=== PATIENT | male | born 1955 | race Hispanic/Latino ===

== ENCOUNTER 2018-01-16 20:48 | Emergency (ER) | payer SELFPAY ==
[2018-01-16] MEDS ORDERED: LIDOCAINE 1% 20 ML MDV ONE (21:15)
[2018-01-16] MEDS ORDERED: TETANUS & DIPHTHERIA TOX,ADULT 0.5 ML VIAL ONE (21:32)
[2018-01-16] MEDS ORDERED: DERMABOND SKIN ADHESIVE TOP ONE (21:38)
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
--- NOTE | 2018-01-17 08:07 | RAD REPORT ---
EXAM DESCRIPTION: CT - Head Brain Wo Cont - 01/17/2018 6:46 am CLINICAL HISTORY: Trauma, head injury COMPARISON: None. TECHNIQUE: All CT scans are performed using dose optimization technique as appropriate and may inclu de automated exposure control or mA/KV adjustment according to patient size. FINDINGS: No intracranial hemorrhage, hydrocephalus or extra-axial fluid collection.Moderate brain a trophy.No areas of brain edema or evidence of midline shift. Moderate left frontal scalp hematoma. The paranasal sinuses and mastoids are clear. The calvarium is intact. IMPRESSION: No acute intracranial abnormality.
== END 2018-01-16 23:18 | disposition home or self-care (01) ==
LOC: ER 20:48
PROC: 0JQ10ZZ Repair Face Subcutaneous Tissue and Fascia, Open Approach (ICD-10-PCS; principal; 2018-01-16)
DX: S01.81XA Laceration without foreign body of other part of head, initial encounter (principal); S01.01XA Laceration without foreign body of scalp, initial encounter; S01.122A Laceration with foreign body of left eyelid and periocular area, initial encounter; Y04.0XXA Assault by unarmed brawl or fight, initial encounter; Y92.009 Unspecified place in unspecified non-institutional (private) residence as the place of occurrence of the external cause; Z23 Encounter for immunization
CPT/HCPCS: 70450; 90714; 99284